=== PATIENT | female | born 1970 | race Caucasian/White ===

== ENCOUNTER 2020-06-25 13:46 | Emergency (ER) | payer MEDICAID, SELFPAY ==
--- NOTE | 2020-06-25 13:30 | RAD_ITS ---
STUDY: X-RAY CHEST REASON FOR EXAM: Female, 50 years old. HEART PALPITATIONS TECHNIQUE: Single AP portable view of the chest. COMPARISON: None. FINDINGS: EKG electrodes are seen. The lungs are clear and expanded. There is no demonstrated pleural abnormality. Normal size heart. Normal mediastinum and edward. Normal visualized pulmonary arteries. Normal visualized aortic arch and descending thoracic aorta. Normal visualized thoracic spine. Normal visualized ribs, clavicles, and shoulders. There is no demonstrated abnormality of the visualized soft tissue structures of the upper abdomen. RAD/Chest 1 View (Portable) IMPRESSION: Normal x-ray examination of the chest. Electronically Signed: Enio Rodriguez, at 15:54 EDT , Service support ,
[2020-06-25 13:48] VITALS: BP 145/81; PULSE 87; RESP 15; TEMP 36.6; O2SAT 100; BMI 28.1
--- NOTE | 2020-06-25 13:59 | NURSING ---
NO OLD EKGS
--- NOTE | 2020-06-25 14:06 | EKG12_ITS ---
Test Reason : PALPITATIONS Blood Pressure : / mmHG Vent. Rate : 074 BPM Atrial Rate : 074 BPM P-R Int : 140 ms QRS Dur : 076 ms QT Int : 380 ms P-R-T Axes : 043 058 047 degrees QTc Int : 421 ms Sinus rhythm with Premature supraventricular complexes Otherwise normal ECG Confirmed by REJI BUSTILLO, CHRISTIANO ([id number]), managing editor JR FLETCHER ([id number]) on 06/30/2020 9:27:52 AM Referred By: LEO Confirmed By:NANETTE MENDOZA MD
--- NOTE | 2020-06-25 14:24 | ED.DCSUM_ITS ---
- ER Visit Summary Date of Service: 06/25/20 Chief Complaint: Palpitations History of Present Illness: The patient is a 50 F no seen past medical history. Prior hysterectomy. Patient states since yesterday afternoon she is had intermittent palpitations. No other symptoms. Denies chest pain or shortness of breath. Denies nausea or diaphoresis. Nonexertional. Drinks about 1 cup of coffee or tea a day. Prior history but no prior work-up. No history of thyroid disease. No recent drastic weight change, hair loss or temperature intolerance. Physical Examination: Well-appearing middle-aged female vital signs are stable afebrile. Pulse ox 9% on room air no signs hypoxia. HEENT exam unremarkable. Neck nontender no lymphadenopathy. No thyromegaly. Lungs clear to auscultation bilaterally. Heart regular rhythm rate about 90 no murmur. Chest were nontender. Abdomen soft nontender. Normal bowel sounds no peritoneal signs. Patient moving all 4 extremities. Neurovascular intact. Calves nontender without edema or cords. Neurologically she is awake and alert no focal motor deficits. Test Results: Chest x-ray portable 1 view shows no acute abnormality. Normal cardiac silhouette mediastinum. EKG normal sinus rhythm rate of 74 no acute signs of NH or ischemia. No PVCs. No dysrhythmia. CBC normal white count of 5 hemoglobin 13. Chemistries unremarkable normal creatinine gap. TSH normal at 2 troponin normal. Emergency Department Course and Treatment: Patient undergo cardiac work-up. Her exam is unremarkable. Repeat exam at 4:16 PM patient is doing well. We went over all of her test re sults. She will be discharged home. Treatment Plan: Return if feeling worse. Follow-up with her primary care physician. Disposition: Discharge Impression: Acute palpitations of uncertain etiology This note was generated with [employer] dictation software. It may contain incorrect words, spelling, and punctuation that were not noted in review of the chart prior to signing ED Disposition - Plan for ED Patient: Referrals: Tomasz Fabian MD [Primary Care Provider] -
[2020-06-25 15:01] VITALS: BP 138/88; PULSE 81; RESP 15; O2SAT 98
[2020-06-25 15:09] LABS: Absolute Lymphocyte Count 1.39 X10^3/uL (0.83-4.51); Absolute Neutrophil Count 3.7 X10^3/uL (2.0-7.7); Basophil# 0.05 X10^3/uL; Basophil% 0.9 % (0-1); Eosinophil# 0.09 X10^3/uL; Eosinophils% 1.6 % (0-5); Hematocrit 42.7 % (37-47); Hemoglobin 13.4 g/dL (12.0-15.0); Lymphocyte # 1.39 X10^3/ul (4.0); Lymphocyte % 24.7 % (19-41); Mean Corp Hgb Conc 31.4 g/dL (32-36); Mean Corpuscular Hgb 26.5 pg (27.0-32.0); Mean Corpuscular Volume 84.6 fL (81-99); Mean Platelet Vol. 8.7 fl (6.2-12.0); Monocyte# 0.42 X10^3/uL; Monocyte% 7.5 % (0-10); NRBC Flagged by Analyzer 0 % (0-5); Neutrophil # 3.67 X10^3/uL (2.7-7.7); Neutrophil % 65.1 % (47-70); Platelet Count 327 K/mm3 (150-450); RBC Distribution Width CV 12.3 % (11.6-14.6); RBC Distribution Width SD 37.3 fl (35.1-43.9); Red Blood Count 5.05 M/mm3 (4.2-5.4); White Blood Count 5.6 K/mm3 (4.4-11.0)
[2020-06-25 15:41] LABS: Anion Gap 4 (5-15); BUN 15 mg/dL (7-18); BUN/Creat Ratio 17.9 RATIO (10-20); Chloride 110 mmol/L (98-107); Creatinine, Serum 0.84 mg/dL (0.55-1.02); EST Glomerular Filtration Rate 76 mL/min (>60); Est Glom Filt Rate - Afr Amer 92 mL/min (>60); Glucose 91 mg/dL (74-106); Potassium 3.7 mmol/L (3.5-5.1); Sodium Level 142 mmol/L (136-145); Thyroid Stim Hormone (TSH) 2.03 uIU/mL (0.358-3.74)
--- NOTE | 2020-06-25 16:17 | ED.DEP ---
ED Disposition - Plan for ED Patient: Disposition: Home or Assisted Living Instructions: ED Palpitations Referrals: Tomasz Fabian MD [Primary Care Provider] - 3-5 Days if not improving Additional Instructions: Your labs, thyroid test, chest x-ray and EKG today were all normal. Follow-up with your doctor if not improving. Return if feeling worse.
[2020-06-25 16:47] VITALS: BP 134/86; PULSE 75; RESP 17; O2SAT 99
== END 2020-06-25 16:49 | disposition home or self-care (01) ==
PROVIDERS: Emergency Provider Emergency Medicine; PCP Family Medicine
DX: R00.2 Palpitations (principal)
CPT/HCPCS: 71045; 80048; 84443; 84484; 85025; 93005; 99284; A4216

== ENCOUNTER 2020-06-30 12:44 | Emergency (ER) | payer MEDICAID, SELFPAY ==
[2020-06-30 12:45] VITALS: BP 128/86; PULSE 99; RESP 18; TEMP 36.5; O2SAT 100; BMI 29.0
--- NOTE | 2020-06-30 13:16 | EKG12_ITS ---
Test Reason : PALPITATIONS Blood Pressure : / mmHG Vent. Rate : 089 BPM Atrial Rate : 089 BPM P-R Int : 144 ms QRS Dur : 080 ms QT Int : 354 ms P-R-T Axes : 067 081 059 degrees QTc Int : 430 ms Sinus rhythm with marked sinus arrhythmia Low voltage QRS (Limb Leads) Confirmed by HODA BUSTILLO, OVIDIO ([id number]), deputy editor in chief JR FLETCHER ([id number]) on 07/02/2020 1:28:46 PM Referred By: Confirmed By:OVIDIO DRUMMOND MD
--- NOTE | 2020-06-30 13:18 | ED.DCSUM_ITS ---
History of Present Illness Chief Complaint: Palpitations Informant: Patient Narrative: Patient presents the emergency department the chief complaint of heart palpitations. She states that last Tuesday and Tuesday she experienced it and came to the emergency department on Tuesday. There she had an EKG, chest x- ray, CBC, BMP, troponin, and TSH that were normal. She states she did not have any further symptoms until this morning around 0815. She states today it feels like her heart is beating really strong. She states that she took out a stethoscope to listen to her chest seemed like it was having an extra beat and then pausing. She states that she drinks maybe 1 cup of coffee per day. She denies any new medications. She did try a new herbal cleanse last Tuesday but has not had any of that since. Symptoms seem to come and go but today are mostly present. Past Medical History - Allergies and Home Meds Allergies/Adverse Reactions: Allergies amoxicillin Allergy (Verified 06/25/20 13:48) Rash Primary Care Physician: Tomasz Fabian MD [Primary Care Provider] - Smoking Status: Never smoker Review of Systems General: Denies: Chills, Fever, Sweats Eyes: Denies: Visual changes - bilaterally, Diplopia ENT: Denies: Rhinorrhea, Sore throat Cardiovascular: Reports: Chest pain, Palpitations Respiratory: Denies: Dyspnea, Cough, Dyspnea on exertion Gastrointestinal: Denies: Abdominal pain, Nausea, Vomiting, Diarrhea, Melena, Hematochezia Genitourinary: Denies: Dysuria, Hematuria, Frequency Musculoskeletal: Denies: Back pain, Extremity Pain Skin: Denies: Rash, Wounds Neurological: Denies: Headache, Weakness, Numbness Physical Exam Vital Signs/Narrative: Vital Signs Temp Pulse Resp BP Pulse Ox 06/30/20 12:45 97.7 F L 99 18 128/86 H 100 Inital Vital Signs reviewed: Yes General: Well nourished, Well developed, No Acute Distress Head: Normocephalic, Atraumatic Eyes: Perrl, EOMI ENT: Moist mucous membranes, No rhinorrhea Neck: Supple, Nontender Cardiovascular: Regular rate, Regular rhythm, No murmurs Respiratory: No distress, CTA bilaterally, Chest nontender Abdomen: Soft, Nontender, Nondistended, Normal bowel sounds Back: Nontender, Normal Inspection Extremities: Nontender, No edema Skin: Normal color, No rash Neurological: Alert, Oriented x3, Cranial nerves II-XII grossly intact, Normal Strength, Normal Sensation Psychological: Normal affect, Normal Mood Diagnostic/Tx/Re-eval Laboratory Last Values Sodium 144 mmol/L (136-145) 06/30/20 13:31 Potassium 3.7 mmol/L (3.5-5.1) 06/30/20 13:31 Chloride 110 mmol/L (98-107) H 06/30/20 13:31 Carbon Dioxide 29.0 mmol/L (21.0-32.0) 06/30/20 13:31 Anion Gap 5 (5-15) 06/30/20 13:31 BUN 16 mg/dL (7-18) 06/30/20 13:31 Creatinine 0.90 mg/dL (0.55-1.02) 06/30/20 13:31 Estim Creat Clear Calc 63.14 ml/min 06/30/20 13:31 Est GFR (MDRD) Af Amer 85 mL/min (>60) 06/30/20 13:31 Est GFR (MDRD) Non-Af 70 mL/min (>60) 06/30/20 13:31 BUN/Creatinine Ratio 17.9 RATIO (-) 06/30/20 13:31 Glucose 109 mg/dL (74-106) H 06/30/20 13:31 Calcium 9.1 mg/dL (8.5-10.1) 06/30/20 13:31 Magnesium 2.3 mg/dL (1.6-2.6) 06/30/20 13:31 Troponin I < 0.015 ng/mL (<0.045) 06/30/20 13:31 - EKG Initial EKG Interpretation: Sinus Rhythm - EKG demonstrates a sinus rhythm with a PAC. Heart rate is 89. No concerning features of ACS. QTc 430. - Medical Decision Making Patient has had no events on the monitor. Repeat troponin negative. Magnesium potassium normal. Discussed with the patient follow-up with her doctor. We talked about possibly obtain an echocardiogram and Holter monitor. Return if worsening or concerns ED Disposition - Plan for ED Patient: Disposition: Home or Assisted Living Diagnosis: Heart palpitations Instructions: ED Palpitations Referrals: Tomasz Fabian MD [Primary Care Provider] - Additional Instructions: Please discuss with your doctor an echocardiogram and Holter monitor.
[2020-06-30 13:58] VITALS: BP 155/93; PULSE 84; RESP 19; O2SAT 98
[2020-06-30 14:02] LABS: Anion Gap 5 (5-15); BUN 16 mg/dL (7-18); BUN/Creat Ratio 17.9 RATIO (10-20); Calcium,Total 9.1 mg/dL (8.5-10.1); Chloride 110 mmol/L (98-107); EST Glomerular Filtration Rate 70 mL/min (>60); Est Glom Filt Rate - Afr Amer 85 mL/min (>60); Estimated Creatinine Clearance 63.14 ml/min; Glucose 109 mg/dL (74-106); Magnesium 2.3 mg/dL (1.6-2.6); Potassium 3.7 mmol/L (3.5-5.1); Sodium Level 144 mmol/L (136-145)
[2020-06-30 14:10] VITALS: BP 145/85; PULSE 82; RESP 14; O2SAT 98
[2020-06-30 14:31] VITALS: BP 140/95; PULSE 73; RESP 15; O2SAT 99
== END 2020-06-30 14:35 | disposition home or self-care (01) ==
PROVIDERS: Emergency Provider Emergency Medicine; PCP Family Medicine
DX: R00.2 Palpitations (principal)
CPT/HCPCS: 80048; 83735; 84484; 93005; 99284; A4216

== ENCOUNTER 2020-07-07 13:30 | Emergency (ER) | payer MEDICAID, SELFPAY ==
[2020-07-07 13:31] VITALS: BP 132/84; PULSE 67; RESP 15; TEMP 36.4; O2SAT 100; BMI 28.3
[2020-07-07 13:44] VITALS: O2SAT 100
--- NOTE | 2020-07-07 13:44 | EKG12_ITS ---
Test Reason : CP Blood Pressure : / mmHG Vent. Rate : 090 BPM Atrial Rate : 090 BPM P-R Int : 158 ms QRS Dur : 084 ms QT Int : 358 ms P-R-T Axes : 053 083 058 degrees QTc Int : 437 ms Sinus rhythm with Premature atrial complexes Otherwise normal ECG Confirmed by CONRADO BUSTILLO, KEITH ([id number]), primer expeditor and drier SEVERIANO SON ([id number]) on 07/08/2020 9:21:58 AM Referred By: SOPHIA Confirmed By:KEITH CAMP MD
[2020-07-07 14:10] LABS: Absolute Lymphocyte Count 1.47 X10^3/uL (0.83-4.51); Absolute Neutrophil Count 4.2 X10^3/uL (2.0-7.7); Basophil# 0.04 X10^3/uL; Basophil% 0.6 % (0-1); Eosinophil# 0.06 X10^3/uL; Hematocrit 40.8 % (37-47); Hemoglobin 13.1 g/dL (12.0-15.0); Lymphocyte # 1.47 X10^3/ul (4.0); Lymphocyte % 23.6 % (19-41); Mean Corp Hgb Conc 32.1 g/dL (32-36); Mean Corpuscular Hgb 26.8 pg (27.0-32.0); Mean Corpuscular Volume 83.4 fL (81-99); Mean Platelet Vol. 8.8 fl (6.2-12.0); Monocyte# 0.43 X10^3/uL; Monocyte% 6.9 % (0-10); NRBC Flagged by Analyzer 0 % (0-5); Neutrophil # 4.22 X10^3/uL (2.7-7.7); Neutrophil % 67.7 % (47-70); Platelet Count 360 K/mm3 (150-450); RBC Distribution Width CV 12.3 % (11.6-14.6); RBC Distribution Width SD 37.2 fl (35.1-43.9); Red Blood Count 4.89 M/mm3 (4.2-5.4); White Blood Count 6.2 K/mm3 (4.4-11.0)
--- NOTE | 2020-07-07 14:22 | ED.VISSUMM ---
- ER Visit Summary Date of Service: 07/07/20 Chief Complaint: Palpitations History of Present Illness: The patient is a [address] Fabian. She reports that she has palpitations began at 5:00 yesterday. States that her her heart rate seems pounding and irregular. States that it occasionally makes her take a deep breath. She denies any chest pain. She does report she has been lightheaded at times with this. Patient reports that she has had similar episodes off and on this month. She had never had this before. She has been seen in the emergency department twice and had unremarkable work-ups. She was found to be having PACs. She has an appointment to see Dr. Coombs, a veteran appeals reviewer from [facility], in 1 week. She denies any other complaints. Physical Examination: Vitals: Stable. Afebrile. General: Well-nourished and well-developed. Head: Normocephalic atraumatic. Neck: Supple, no lymphadenopathy. No JVD. Nontender. Cardiovascular: Irregular rhythm. No murmurs. Respiratory: No respiratory distress. Clear to auscultation bilaterally. Abdominal: Soft, nontender, nondistended, normal bowel sounds. No guarding, rebound, or peritoneal signs. Back: Nontender. Extremities: Nontender, no edema. Skin: Normal color, no rash. Neurologic: Alert and oriented ?3. Cranial nerves II through XII are intact. Normal strength and sensation. Psych: Normal affect. Test Results: EKG is sinus at 90 with frequent PACs. Nonspecific ST changes. CBC is normal. Chem-7 is marked for potassium 3.3, chloride 108, glucose 147. Troponin is negative. Emergency Department Course and Treatment: Patient is in sinus rhythm in the 60s. She is having frequent PACs however. Treatment Plan: The patient was discussed with Dr. Higgins. She will be discharged with a 24-hour Holter monitor so that the visit she has with cardiology next week will be more productive. Return to the emergency department for any worsening symptoms. Disposition: To home in improved and stable condition. Impression: 1. Palpitations. This note was generated with [employer] software. It may contain incorrect words, spelling, and punctuation that were not noted in review of the chart prior to signing ED Disposition - Plan for ED Patient: Instructions: ED Palpitations Referrals: Tomasz Fabian MD [Primary Care Provider] - Additional Instructions: Follow-up with your veteran appeals reviewer in 1 week as scheduled.
[2020-07-07 14:27] LABS: Anion Gap 6 (5-15); BUN 16 mg/dL (7-18); BUN/Creat Ratio 18.6 RATIO (10-20); Calcium,Total 9.2 mg/dL (8.5-10.1); Chloride 108 mmol/L (98-107); Creatinine, Serum 0.86 mg/dL (0.55-1.02); EST Glomerular Filtration Rate 74 mL/min (>60); Est Glom Filt Rate - Afr Amer 89 mL/min (>60); Estimated Creatinine Clearance 66.08 ml/min; Glucose 147 mg/dL (74-106); Potassium 3.3 mmol/L (3.5-5.1); Sodium Level 141 mmol/L (136-145)
[2020-07-07 14:30] VITALS: BP 125/73; PULSE 85; RESP 16; O2SAT 96
[2020-07-07 15:17] VITALS: BP 133/70; PULSE 77; RESP 16; O2SAT 96
--- NOTE | 2020-07-07 15:18 | ED.RN ---
DISCHARGE INSTRUCTIONS GIVEN TO AND REVIEWED WITH PATIENT, PATIENT DENIES QUESTIONS OR CONCERNS AND VOICES UNDERSTANDING OF DISCHARGE INSTRUCTIONS. PT AMBULATES OUT OF ROOM WITHOUT DIFFICULTY.
== END 2020-07-07 15:18 | disposition home or self-care (01) ==
LOC: ED 13:59
PROVIDERS: Emergency Provider Emergency Medicine; PCP Family Medicine
DX: R00.2 Palpitations (principal); N32.9 Bladder disorder, unspecified; N32.89 Other specified disorders of bladder; R10.12 Left upper quadrant pain
CPT/HCPCS: 80048; 84484; 85025; 93005; 93225; 93226; 99283

== ENCOUNTER → 2020-07-07 15:06 | Outpatient (CLI) | payer MEDICAID, SELFPAY ==
[2020-07-07 13:31] VITALS: BMI 28.3
== END ==
PROVIDERS: PCP Family Medicine; Visit Provider Emergency Medicine
DX: N32.9 Bladder disorder, unspecified (principal); N32.89 Other specified disorders of bladder; R10.12 Left upper quadrant pain
CPT/HCPCS: 93225; 93226